=== PATIENT | female | born 1965 | race Caucasian/White ===

== ENCOUNTER 2018-07-02 14:41 | Emergency (ER) | payer OTHER ==
[~2018-07-02] VITALS: Ht 167.6 cm; Wt 91.0 kg
[~2018-07-02 14:41] MED LIST: CETI10TA22 PO; LOSA1TAB2 PO; METO50TA29 PO; METR500T PO; MULT-18 PO; PERM60CR12 TP; medrol dose pack
[2018-07-02] MEDS ORDERED: IV NORMAL SALINE 500ML 500 ML IV ONE (15:15)
--- NOTE | 2018-07-02 15:22 | RAD ---
EXAM: CT Head without IV contrast CLINICAL HISTORY: Severe headache today COMPARISON: None. TECHNIQUE: Routine CT of the head without contrast. Soft tissues and bone windows were reviewed. PQRS compliance statement - One or more of the following individualized dose reduction techniques were utilized for this study: 1. Automated exposure control 2. Adjustment of the mA and/or kV according to patient size 3. Use of iterative reconstruction technique FINDINGS: There is no evidence of hemorrhage, mass or extra-axial fluid collection. Cornell-white differentiation is maintained with no evidence of edema. There is no mass effect or shift of the intracranial structures. The ventricles, basilar cisterns and cortical sulci are normal in size and configuration for the patients stated age. The cerebellum and brainstem are unremarkable. The calvarium demonstrates no evidence of fracture or focal lesion. There is normal aeration of the visualized paranasal sinuses and mastoid air cells. The visualized portions of the orbits are normal. IMPRESSION: 1. No evidence for acute intracranial process. Electronically signed by: Domingo Bai MD (07/02/2018 3:19 PM) [facility]
[2018-07-02 15:35] LABS: BASO # 0.1 x10^3/uL (0.0-0.2); BASO % 1 % (0-3); EOS # 0.3 x10^3/uL (0.0-0.7); EOS % 2 % (0-3); HEMATOCRIT 42.8 % (36.0-47.0); HEMOGLOBIN 14.6 g/dL (12.0-15.5); LYMPH # 3.7 x10^3/uL (1.0-4.8); LYMPH % 34 % (24-48); MEAN CORPUSCULAR HEMOGLOBIN 30 pg (25-35); MEAN CORPUSCULAR HGB CONC 34 g/dL (31-37); MEAN CORPUSCULAR VOLUME 88 fL (79-100); MONO # 0.7 x10^3/uL (0.0-1.1); MONO % 6 % (0-9); NEUT # 6.3 x10^3uL (1.8-7.7); NEUT % 57 % (31-73); PLATELET COUNT 410 x10^3/uL (140-400); RED BLOOD COUNT 4.86 x10^6/uL (3.50-5.40); RED CELL DISTRIBUTION WIDTH 13.9 % (11.5-14.5)
[2018-07-02] MEDS ORDERED: DEXAMETHASONE SOD PHOS 4 MG/ML VIAL IV ONE (15:45)
[2018-07-02] MEDS ORDERED: KETOROLAC 30 MG/ML VIAL. IV ONE (15:45)
[2018-07-02] MEDS ORDERED: METOCLOPRAMIDE HCL 10 MG/2 ML VIAL. IV ONE (15:45)
[2018-07-02 15:48] LABS: ALBUMIN 3.7 g/dL (3.4-5.0); ALBUMIN/GLOBULIN RATIO 0.9 (1.0-1.7); CALCIUM 10.1 mg/dL (8.5-10.1); CREATININE 0.9 mg/dL (0.6-1.0); GFR 65.8; POTASSIUM 3.7 mmol/L (3.5-5.1); TOTAL BILIRUBIN 0.3 mg/dL (0.2-1.0); TOTAL PROTEIN 7.8 g/dL (6.4-8.2)
[2018-07-02] MEDS ORDERED: BUTA1CAP31 PO (16:11)
--- NOTE | 2018-07-02 16:11 | PHYS DOC ---
Past History Past Medical History: Hypertension Past Surgical History: Cholecystectomy, Tubal ligation, Other Alcohol Use: Occasionally Drug Use: None Adult General Chief Complaint Chief Complaint: HEADACHE HPI HPI Patient is a 53 year old female who presents with complaining of headache and elevation of blood pressure. Patient states she has had history of hypertension and takes losartan/hydrochlorothiazide 100/20 5 in the morning and metoprolol 50 mg in the afternoon. Patient states for the last 2 weeks she has had intermittent episodes of frontal headache with radiation to occipital area as an aching and throbbing pain that lasted most of day and sometimes she has pain at night and unable to sleep. Patient states her blood pressure was 150s and 140s last 2 weeks and she thinks her hypotension caused her headache. Patient denies fever and chills, blurred vision, focal neuro deficit, vomiting. Patient complaining of mild nausea and photophobia. She denies history of migraine by herself or in her family. Patient rated her pain 8/10. Review of Systems Review of Systems Constitutional: Denies fever or chills [] Eyes: Denies change in visual acuity, redness, or eye pain [] HENT: Denies nasal congestion or sore throat [] Respiratory: Denies cough or shortness of breath [] Cardiovascular: No additional information not addressed in HPI [] GI: Denies abdominal pain, vomiting, bloody stools or diarrhea , reports nausea [] : Denies dysuria or hematuria [] Musculoskeletal: Denies back pain or joint pain [] Integument: Denies rash or skin lesions [] Neurologic: Reports headache, denies focal weakness or sensory changes [] Endocrine: Denies polyuria or polydipsia [] All other systems were reviewed and found to be within normal limits, except as documented in this note. Current Medications Current Medications Current Medications Medications (Trade) Dose Ordered Sig/Gera Start Time Stop Time Status Last Admin Dose Admin Dexamethasone Sodium Phosphate (Decadron) 4 mg 1X ONCE 07/02/18 15:45 07/02/18 15:46 DC 07/02/18 15:29 4 MG Ketorolac Tromethamine (Toradol 30mg Vial) 30 mg 1X ONCE 07/02/18 15:45 07/02/18 15:46 DC 07/02/18 15:28 30 MG Metoclopramide HCl (Reglan Vial) 10 mg 1X ONCE 07/02/18 15:45 9/9/18 15:46 DC 07/02/18 15:28 10 MG Sodium Chloride 500 ml @ 0 mls/hr 1X ONCE 07/02/18 15:15 07/02/18 15:17 DC 07/02/18 15:28 500 MLS/HR Allergies Allergies Allergies Coded Allergies Type Severity Reaction Last Updated Verified metronidazole Allergy Unknown 07/02/18 Yes Uncoded Allergies Type Severity Reaction Last Updated Verified PCN Allergy Unknown 03/14/14 TAPE Adverse Reaction Mild rash 03/14/14 Physical Exam Physical Exam Constitutional: Well developed, well nourished, mild distress, non-toxic appearance. [] HENT: Normocephalic, atraumatic, bilateral external ears normal, oropharynx moist, no oral exudates, nose normal. [] Eyes: PERRLA, EOMI, conjunctiva normal, no discharge. [] Neck: Normal range of motion, no tenderness, supple, no stridor. [] Cardiovascular:Heart rate regular rhythm, no murmur [] Lungs & Thorax: Bilateral breath sounds clear to auscultation [] Abdomen: Bowel sounds normal, soft, no tenderness, no masses, no pulsatile masses. [] Skin: Warm, dry, no erythema, no rash. [] Back: No tenderness, no CVA tenderness. [] Extremities: No tenderness, no cyanosis, no clubbing, ROM intact, no edema. [] Neurologic: Alert and oriented X 3, normal motor function, normal sensory function, no focal deficits noted. [] Psychologic: Affect normal, judgement normal, mood normal. [] Current Patient Data Vital Signs Vital Signs Date Time Temp Pulse Resp B/P (MAP) Pulse Ox O2 Delivery O2 Flow Rate FiO2 07/02/18 14:52 98.1 69 20 98 Room Air Lab Results Laboratory Tests Test 07/02/18 15:15 White Blood Count 11.0 x10^3/uL (4.0-11.0) Red Blood Count 4.86 x10^6/uL (3.50-5.40) Hemoglobin 14.6 g/dL (12.0-15.5) Hematocrit 42.8 % (36.0-47.0) Mean Corpuscular Volume 88 fL (79-100) Mean Corpuscular Hemoglobin 30 pg (25-35) Mean Corpuscular Hemoglobin Concent 34 g/dL (31-37) Red Cell Distribution Width 13.9 % (11.5-14.5) Platelet Count 410 x10^3/uL (140-400) H Neutrophils (%) (Auto) 57 % (31-73) Lymphocytes (%) (Auto) 34 % (24-48) Monocytes (%) (Auto) 6 % (0-9) Eosinophils (%) (Auto) 2 % (0-3) Basophils (%) (Auto) 1 % (0-3) Neutrophils # (Auto) 6.3 x10^3uL (1.8-7.7) Lymphocytes # (Auto) 3.7 x10^3/uL (1.0-4.8) Monocytes # (Auto) 0.7 x10^3/uL (0.0-1.1) Eosinophils # (Auto) 0.3 x10^3/uL (0.0-0.7) Basophils # (Auto) 0.1 x10^3/uL (0.0-0.2) Sodium Level 139 mmol/L (136-145) Potassium Level 3.7 mmol/L (3.5-5.1) Chloride Level 101 mmol/L (98-107) Carbon Dioxide Level 32 mmol/L (21-32) Anion Gap 6 (6-14) Blood Urea Nitrogen 21 mg/dL (7-20) H Creatinine 0.9 mg/dL (0.6-1.0) Estimated GFR (Cockcroft-Gault) 65.8 BUN/Creatinine Ratio 23 (6-20) H Glucose Level 95 mg/dL (70-99) Calcium Level 10.1 mg/dL (8.5-10.1) Total Bilirubin 0.3 mg/dL (0.2-1.0) Aspartate Amino Transferase (AST) 16 U/L (15-37) Alanine Aminotransferase (ALT) 25 U/L (14-59) Alkaline Phosphatase 67 U/L (46-116) Troponin I Quantitative < 0.017 ng/mL (0-0.055) Total Protein 7.8 g/dL (6.4-8.2) Albumin 3.7 g/dL (3.4-5.0) Albumin/Globulin Ratio 0.9 (1.0-1.7) L EKG EKG [] Radiology/Procedures Radiology/Procedures [address] [id number] IMAGING REPORT Signed PATIENT: MANJU LEON ACCOUNT: [id number] : 1965 LOCATION: ER AGE: 53 SEX: F EXAM STATUS: REG ER ORD. PHYSICIAN: ROGER ALEJANDRA MD REASON: Severe headache today PROCEDURE: CT HEAD WO CONTRAST EXAM: CT Head without IV contrast CLINICAL HISTORY: Severe headache today COMPARISON: None. TECHNIQUE: Routine CT of the head without contrast. Soft tissues and bone windows were reviewed. PQRS compliance statement - One or more of the following individualized dose reduction techniques were utilized for this study: 1. Automated exposure control 2. Adjustment of the mA and/or kV according to patient size 3. Use of iterative reconstruction technique FINDINGS: There is no evidence of hemorrhage, mass or extra-axial fluid collection. Cornell-white differentiation is maintained with no evidence of edema. There is no mass effect or shift of the intracranial structures. The ventricles, basilar cisterns and cortical sulci are normal in size and configuration for the patients stated age. The cerebellum and brainstem are unremarkable. The calvarium demonstrates no evidence of fracture or focal lesion. There is normal aeration of the visualized paranasal sinuses and mastoid air cells. The visualized portions of the orbits are normal. IMPRESSION: 1. No evidence for acute intracranial process. Electronically signed by: Domingo Connell MD (07/02/2018 3:19 PM) [facility] DICTATED AND SIGNED BY: DOMINGO CONNELL MD DATE: 07/02/18 [id number] CC: CARLOS JUNE; ROGER ALEJANDRA MD ~ Course & Med Decision Making Course & Med Decision Making Pertinent Labs and Imaging studies reviewed. (See chart for details) Evaluation of patient in ER showed 53-year-old female patient with complaining of intermittent episodes of headache for 2 weeks and one quarter blood pressure. Patient did not have history of migraine headache. Patient had unremarkable physical exam and CT head and labs except for mild elevation of BUN related to taking hydrochlorothiazide. Patient treated with IV fluids, Reglan, Toradol and is oriented to the affected better. Blood pressure dropped from 150s to 120/70. She instructed to continue her blood pressure medication and follow up with her primary care physician. Prescription for Fiorinal was given Dragon Disclaimer Dragon Disclaimer This electronic medical record was generated, in whole or in part, using a voice recognition dictation system. Departure Departure: Impression: Primary Impression: Headache Additional Impression: Uncontrolled hypertension Disposition: HOME, SELF-CARE (at 1609) Condition: IMPROVED Referrals: CARLOS JUNE (PCP) Patient Instructions: General Headache Without Cause, Hypertension Additional Instructions: Continue home blood pressure medication Follow-up with your primary care physician in 3-5 days Return to ER if not getting better Scripts Butalbital/Aspirin/Caffeine (FIORINAL 50-325-40 MG CAPSULE) 1 Each Capsule 1 EACH PO QID PRN for HEADACHE, #30 CAP Prov: ROGER ALEJANDRA MD 07/02/18 Problem Qualifiers ROGER ALEJANDRA MD Jul 02, 2018 16:11
[2018-07-02 16:13] VITALS: BP 138/77
== END 2018-07-02 16:13 | disposition home or self-care (01) ==
LOC: ER 14:41
DX: I10 Essential (primary) hypertension (principal); Z88.8 Allergy status to other drugs, medicaments and biological substances
CPT/HCPCS: 36415; 70450; 80053; 84484; 85025; 96374; 96375; 99285; J1100; J1885; J2765; J7040